=== PATIENT | male | born 1990 | race African-American/Black ===

== ENCOUNTER 2017-12-01 09:36 | Emergency (ER) | payer SELFPAY ==
[~2017-12-01] VITALS: Ht 188 cm; Wt 117.9 kg
[2017-12-01 09:44] VITALS: BP 146/75; Ht 188 cm; Wt 117.9 kg
== END 2017-12-01 10:35 | disposition home or self-care (01) ==
LOC: ED 09:36
DX: J20.9 Acute bronchitis, unspecified (principal); Z88.8 Allergy status to other drugs, medicaments and biological substances